=== PATIENT | male | born 1985 | race Caucasian/White ===

== ENCOUNTER 2024-08-02 11:44 | Emergency (ER) | payer OTHER, SELFPAY ==
[2024-08-02 12:06] VITALS: BP 113/73; PULSE 94; RESP 17; TEMP 36.9; O2SAT 98; BMI 25.2
--- NOTE | 2024-08-02 12:35 | ED_ITS ---
HPI - Back Pain/Injury <Candice Woods PA-C - Last Filed: 08/02/24 14:41> General Chief Complaint: Back Pain/Injury Stated Complaint: Back pain/pinch nerve. In pain and can't walk. Time Seen by Provider: 08/02/24 12:35 Source: patient History of Present Illness HPI Narrative: Mr. Damon is a 38-year-old male who denies any past medical history that presents to the emergency department for low back pain x 4 days. 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 Today the pain became so unbearable he decided to come to the emergency department with his . He only has comfort in lying flat on the floor. He took Dramamine and Advil earlier today which does not help the pain at all. He denies having similar severe pain like this in the past. Pain does not radiate down the leg. Denies any bowel or bladder dysfunction, fevers, chills, abdominal pain, nausea, vomiting, dysuria, hematuria, history of IV drug use. Related Data Previous Rx's Medication Instructions Recorded acetaminophen 500 mg capsule 1,000 mg (2 x 500 mg) PO Q6H PRN 08/02/24 pain #20 caps lidocaine 5 % topical patch 1 patch topical DAILY #15 ea 08/02/24 (Lidoderm) methocarbamol 500 mg tablet 500 mg PO TID PRN muscle spasm #20 08/02/24 tabs naproxen 500 mg tablet 500 mg PO BID PRN pain #20 tabs 08/02/24 Allergies Allergy/AdvReac Type Severity Reaction Status Date / Time No Known Drug Allergies Allergy Verified 08/02/24 12:06 Review of Systems <Candice Woods PA-C - Last Filed: 08/02/24 14:41> Review of Systems ROS Unobtainable: All systems reviewed & are unremarkable except as noted in HPI and below Patient History <Candice Woods PA-C - Last Filed: 08/02/24 14:41> Social History Smoking Status: Never smoker Smoking Status: Never smoker Exam <Candice Woods PA-C - Last Filed: 08/02/24 14:41> Narrative Exam Narrative: GENERAL: 38 year old patient appears stated age. Well-developed patient, in mild distress, laying on ED room floor due to pain, reluctant to stand. Able to stand with assistance. HEAD: Atraumatic. Normocephalic. NECK: Trachea midline. Cervical ROM intact. CARDIOVASCULAR: Regular rate and rhythm. Strong DP and PT pulses bilaterally. RESPIRATORY: ?Nonlabored respirations. ?Speaking in clear, full sentences. ?Clear to auscultation. GASTROINTESTINAL: Abdomen soft, non-tender, nondistended. EXTREMITIES: No edema or joint tenderness. BACK: Nontender without deformity or crepitance. No flank tenderness. Severe subjective pain in mid lumbar region. Positive bilateral straight leg raise at 90?. NEURO: AOx3. ?Clear speech. ?Moves all 4 extremities appropriately. Sensation intact to light touch in the bilateral lower extremities. SKIN: No rash or erythema of visible areas Initial Vital Signs Initial Vital Signs: Vital Signs Temperature 98.4 F 08/02/24 12:06 Pulse Rate 94 H 08/02/24 12:06 Respiratory Rate 17 08/02/24 12:06 Blood Pressure 113/73 08/02/24 12:06 Pulse Oximetry 98 08/02/24 12:06 Oxygen Delivery Method Room Air 08/02/24 12:06 <Kaela Wilcox MD - Last Filed: 08/02/24 15:24> Initial Vital Signs Initial Vital Signs: Vital Signs Temperature 98.4 F 08/02/24 12:06 Pulse Rate 94 H 08/02/24 12:06 Respiratory Rate 17 08/02/24 12:06 Blood Pressure 113/73 08/02/24 12:06 Pulse Oximetry 98 08/02/24 12:06 Oxygen Delivery Method Room Air 08/02/24 12:06 Course <Candice Woods PA-C - Last Filed: 08/02/24 14:41> Orders Ordered: ED Orders 08/02/24 13:10 CT lumbar spine wo con Stat Discontinued Medications Dexamethasone (Dexamethasone 10 Mg/Ml Vial) 10 mg IV NOW ONE Stop: 08/02/24 12:49 Last Admin: 08/02/24 13:04 Dose: 10 mg Documented By: DONNA Ketorolac Tromethamine (Ketorolac 30 Mg/Ml Vial) 15 mg IV NOW ONE Stop: 08/02/24 12:49 Last Admin: 08/02/24 13:04 Dose: 15 mg Documented By: SB Morphine Sulfate (Morphine 4 Mg/Ml Inj) 4 mg IV NOW ONE Stop: 08/02/24 12:49 Last Admin: 08/02/24 13:04 Dose: 4 mg Documented By: SB Ondansetron HCl (Ondansetron 4 Mg/2 Ml Inj) 4 mg IV NOW ONE Stop: 08/02/24 12:49 Last Admin: 08/02/24 13:03 Dose: 4 mg Documented By: SB Vital Signs Vital signs: Vital Signs - 8 hr 08/02/24 12:06 08/02/24 14:40 Temperature 98.4 F Pulse Rate 94 H 78 Respiratory Rate 17 16 Blood Pressure 113/73 109/64 Pulse Oximetry 98 98 Oxygen Delivery Method Room Air Room Air <Kaela Wilcox MD - Last Filed: 08/02/24 15:24> Orders Ordered: ED Orders 08/02/24 13:10 CT lumbar spine wo con Stat Discontinued Medications Dexamethasone (Dexamethasone 10 Mg/Ml Vial) 10 mg IV NOW ONE Stop: 08/02/24 12:49 Last Admin: 08/02/24 13:04 Dose: 10 mg Documented By: SB Ketorolac Tromethamine (Ketorolac 30 Mg/Ml Vial) 15 mg IV NOW ONE Stop: 08/02/24 12:49 Last Admin: 08/02/24 13:04 Dose: 15 mg Documented By: SB Morphine Sulfate (Morphine 4 Mg/Ml Inj) 4 mg IV NOW ONE Stop: 08/02/24 12:49 Last Admin: 08/02/24 13:04 Dose: 4 mg Documented By: SB Ondansetron HCl (Ondansetron 4 Mg/2 Ml Inj) 4 mg IV NOW ONE Stop: 08/02/24 12:49 Last Admin: 08/02/24 13:03 Dose: 4 mg Documented By: SB Vital Signs Vital signs: Vital Signs - 8 hr 08/02/24 12:06 08/02/24 14:40 Temperature 98.4 F Pulse Rate 94 H 78 Respiratory Rate 17 16 Blood Pressure 113/73 109/64 Pulse Oximetry 98 98 Oxygen Delivery Method Room Air Room Air MDM - Back Pain/Injury <Candice Woods PA-C - Last Filed: 08/02/24 14:41> Medical Records Attestation: I reviewed the patient's medical records. Imaging Data CT Lumbar: Radiologist's Impression: PROCEDURE: CT LUMBAR SPINE WO CON INDICATIONS: mid low back pain; caused by hevay lifting 4 days ago TECHNIQUE: Noncontrast 3 mm thick sections acquired from the T12 level to the sacrum. Sagittal and coronal reformats were constructed. For radiation dose reduction, the following was used: automated exposure control. COMPARISON: None. FINDINGS: Image quality: Excellent. Bones: There is normal bony alignment. No acute vertebral body compression fractures. No suspicious lytic or blastic bony lesions. No pars defects. T12-L1: Normal. L1-L2: Normal. L2-L3: Normal. L3-L4: The disc height is well preserved. Mild disc bulge is seen. Mild facet joint hypertrophy is seen. No significant neural foraminal or central canal narrowing can be seen. L4-L5: The disc height is relatively well preserved. Mild generalized disc bulge is seen. Moderate facet joint hypertrophy is seen. No significant neural foraminal narrowing is seen. Mild central canal narrowing is seen. L5-S1: Moderate loss of disc height is seen. Loss of disc signal is seen. Endplate irregularity and sclerosis can be seen. Moderate disc bulge is seen, with a central disc osteophyte protrusion. There is [id number] left-sided and moderate right- sided neural foraminal narrowing. Mild central canal narrowing is seen. Soft tissues: No retroperitoneal masses or hematomas. Visualized aorta is normal in caliber. Colonic diverticulosis is seen, without findings of active diverticulitis. IMPRESSION: No anita acute abnormality is seen by CT. Premature lumbar spine degenerative changes are seen, which are worst at the L5- S1 level. [facility] Narrative Medical decision making narrative: 38-year-old male who denies any past medical history that presents to the emergency department for low back pain x 4 days. Differential diagnosis includes but is not limited to herniated disc, spinal stenosis, lumbar degenerative disc disease, lumbar radiculopathy, nephrolithiasis, muscle spasm, etc. On exam patient is in distress secondary to his low back pain, lying on the emergency department floor reluctant to stand up due to pain as he reports he is most comfortable lying on the cold floor. Vital signs appropriate. With nursing staff assistance we were able to lay him up onto the stretcher. He has no reproducible pain on the low back however pain is exacerbated by going from lying to sitting position, bilateral positive straight leg raise. Abdomen soft and nontender, no bowel or bladder dysfunction, no fevers, no history of IV drug use, no trauma. We will treat pain with IV Toradol Decadron morphine Zofran and obtain CT lumbar spine. Patient pain improved significantly, able to ambulate independently. He is very relieved. CT lumbar spine reveals no anita acute abnormality, he does have premature lumbar spine degenerative changes which are worse of the L5-S1 level. CT scan report was printed and discussed with the patient and his . Prescribed naproxen, acetaminophen, Robaxin, Lidoderm, recommended gentle stretching, avoid heavy lifting, follow up with PCP and orthopedic spine surgeon. ED return precautions discussed. Patient verbalized understanding, he is stable for discharge home, his is driving him home. Discharge Plan Departure Patient Disposition: Home Clinical Impression: DDD (degenerative disc disease), lumbar Qualifiers: Disc-related pain type: discogenic back pain only Qualified Code(s): M51.360 - Other intervertebral disc degeneration, lumbar region with discogenic back pain only Repetitive strain injury of lower back Qualifiers: Encounter type: initial encounter Qualified Code(s): S39.012A - Strain of musc le, fascia and tendon of lower back, initial encounter Instructions: DI for Low Back Pain Activity Restrictions/Additional Instructions: Dear Marisol, Thank you for coming to the emergency department today. You were treated with IV pain medications for your low back pain and we obtain a CT scan of your low back which revealed some lumbar degenerative disc disease including intervertebral disc bulges. Please follow up with the primary care doctor as you would benefit from following up in the orthopedic spine surgeon for further evaluation. You may call to schedule an appointment with Dr. Michel Aden with [facility] as he has a spine orthopedic surgeon. Please rest, stretch frequently, perform gentle exercise, avoid heavy lifting. Use prescribed pain medications as needed. Do not drink alcohol operate heavy machinery or drive a car while taking methocarbamol/Robaxin as this is a muscle relaxer and may make you drowsy. Please follow up with your primary care doctor within the next 2-3 days for ER follow-up. (If you do not have a PCP you can call [phone]. ?to schedule an appointment with an [facility] Primary Care Provider) IF YOU DEVELOP ANY NEW OR WORSENING SYMPTOMS, RETURN TO THE ER! Please read the attached instructions, they highlight more specific treatments and interventions for you at home. Thank you for letting me participate in your care, Candice Woods PA-C Prescriptions: New naproxen 500 mg tablet 500 mg PO BID PRN (Reason: pain) Qty: 20 0RF methocarbamol 500 mg tablet 500 mg PO TID PRN (Reason: muscle spasm) Qty: 20 0RF acetaminophen 500 mg capsule 1,000 mg PO Q6H PRN (Reason: pain) Qty: 20 0RF Rx Instructions: do not take more than 3 times daily. lidocaine [Lidoderm] 5 % adhesive patch,medicated 1 patch topical DAILY Qty: 15 0RF Rx Instructions: leave on most painful area for up to 12 hrs Stand Alone Forms: Patient Portal/API/Survey ED Sign-out <Kaela Wilcox MD - Last Filed: 08/02/24 15:24> Cosign ED Attending Cosignature Attestation: I did not see this patient. I was available all times for consultation.
[2024-08-02] MEDS: ONDANSETRON 4 MG/2 ML INJ IV (13:03)
[2024-08-02] MEDS: MORPHINE 4 MG/ML INJ IV (13:04)
[2024-08-02] MEDS: KETOROLAC 30 MG/ML VIAL 15 MG IV (13:04)
[2024-08-02] MEDS: DEXAMETHASONE 10 MG/ML VIAL IV (13:04)
--- NOTE | 2024-08-02 13:10 | DI.CT.S_ITS ---
PROCEDURE: CT LUMBAR SPINE WO CON INDICATIONS: mid low back pain; caused by hevay lifting 4 days ago TECHNIQUE: Noncontrast 3 mm thick sections acquired from the T12 level to the sacrum. Sagittal and coronal reformats were constructed. For radiation dose reduction, the following was used: automated exposure control. COMPARISON: None. FINDINGS: Image quality: Excellent. Bones: There is normal bony alignment. No acute vertebral body compression fractures. No suspicious lytic or blastic bony lesions. No pars defects. T12-L1: Normal. L1-L2: Normal. L2-L3: Normal. L3-L4: The disc height is well preserved. Mild disc bulge is seen. Mild facet joint hypertrophy is seen. No significant neural foraminal or central canal narrowing can be seen. L4-L5: The disc height is relatively well preserved. Mild generalized disc bulge is seen. Moderate facet joint hypertrophy is seen. No significant neural foraminal narrowing is seen. Mild central canal narrowing is seen. L5-S1: Moderate loss of disc height is seen. Loss of disc signal is seen. Endplate irregularity and sclerosis can be seen. Moderate disc bulge is seen, with a central disc osteophyte protrusion. There is [id number] left-sided and moderate right-sided neural foraminal narrowing. Mild central canal narrowing is seen. Soft tissues: No retroperitoneal masses or hematomas. Visualized aorta is normal in caliber. Colonic diverticulosis is seen, without findings of active diverticulitis. IMPRESSION: No anita acute abnormality is seen by CT. Premature lumbar spine degenerative changes are seen, which are worst at the L5-S1 level. Dictated by: Jaylen Gray M.D. on 08/02/2024 at 12:46 Approved by: Jaylen Gray M.D. on 08/02/2024 at 12:48
[2024-08-02 14:40] VITALS: BP 109/64; PULSE 78; RESP 16; O2SAT 98
== END 2024-08-02 14:47 | disposition home or self-care (01) ==
PROVIDERS: Emergency Provider Physician Assistant
DX: S39.012A Strain of muscle, fascia and tendon of lower back, initial encounter (principal); M51.360 Other intervertebral disc degeneration, lumbar region with discogenic back pain only; X50.0XXA Overexertion from strenuous movement or load, initial encounter
CPT/HCPCS: 72131; 96374; 96375; 99284; J1100; J1885; J2270; J2405